=== PATIENT | female | born 1995 | race Caucasian/White ===

== ENCOUNTER 2017-09-01 20:17 | Emergency (ER) | payer SELFPAY ==
[~2017-09-01] VITALS: Ht 167.6 cm; Wt 60.1 kg
[2017-09-01 20:22] VITALS: Ht 167.6 cm; Wt 60.1 kg
[2017-09-01] MEDS ORDERED: IRON1CAP2 PO (20:33)
[2017-09-01] MEDS ORDERED: KETOROLAC TROMETHAMINE 30 MG/ML VIAL IV STA (20:38)
[2017-09-01] MEDS ORDERED: SODIUM CHLORIDE 0.9% 1000ML 1,000 ML IV STA (20:38)
[2017-09-01 21:02] LABS: BASO % 0.2 %; BASO ABS # 0.02 K/uL (0-0.2); EOS % 0.2 %; EOS ABS # 0.03 K/uL (0-0.5); HEMATOCRIT 39.3 % (37-47); HEMOGLOBIN 13.7 g/dL (12.0-16.0); IG# 0.03 K/uL (0.00-0.02); LYMPH % 12.8 %; LYMPH ABS # 1.65 K/uL (1.2-3.4); MEAN CELL VOLUME 89.9 fL (80-100); MEAN CORPUSCULAR HEMOGLOBIN 31.4 pg (25-34); MEAN CORPUSCULAR HGB CONC 34.9 g/dl (32-36); MEAN PLATELET VOLUME 10.2 fL (7.4-10.4); MONO % 6.2 %; NEUT % 80.4 %; NEUT ABS # 10.35 K/uL (1.4-6.5); PLATELET COUNT 238 K/uL (130-400); RED CELL DISTRIBUTION WIDTH CV 13.4 % (11.5-14.5); RED CELL DISTRIBUTION WIDTH SD 44.2 fL (36.4-46.3); WHITE BLOOD COUNT 12.88 K/uL (4.8-10.8)
[2017-09-01 21:21] LABS: ALBUMIN 4.1 gm/dl (3.4-5.0); CREATININE 0.89 mg/dl (0.60-1.20); POTASSIUM 3.5 mmol/L (3.5-5.1)
[2017-09-01 21:23] LABS: TOTAL PROTEIN 7.6 gm/dl (6.4-8.2)
[2017-09-01] MEDS ORDERED: OPTIRAY 320 IV PRN (21:45)
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
--- NOTE | 2017-09-01 21:57 | DIAGNOSTIC IMAGING REPORT ---
CT OF THE ABDOMEN AND PELVIS WITH CONTRAST CLINICAL HISTORY: Lower abdominal pain. COMPARISON STUDY: CT of the abdomen and pelvis September 22, 2015 and pelvic ultrasound April 14, 2016. TECHNIQUE: Following IV administration of 116 mL of Optiray-320, axial images of the abdomen and pelvis were obtained from the lung bases to the proximal femurs. Images were reviewed in the axial, sagittal, and coronal planes. IV contrast was administered without complication. A dose lowering technique was utilized adhering to the principles of ALARA. CT DOSE: 282.64 mGy.cm FINDINGS: Lung bases are clear. The liver, spleen, adrenal glands and pancreas are normal. There is no biliary or pancreatic ductal dilatation. There is no peripancreatic or pericholecystic infiltration. There is mild multifocal scarring of the right kidney. There is no hydronephrosis or hydroureter. There is urothelial thickening of both ureters and the bilateral collecting systems. No ureteral calculi are identified. The caliber and wall thickness of small and large bowel are normal. Visualized portions of the appendix are normal. A small amount of low-attenuation free fluid within the pelvis is noted. Note is made of a 1.9 cm hypodense right ovarian lesion which suggests a dominant follicle. IMPRESSION: 1. Mild urothelial thickening involving the bilateral ureters and collecting systems. This may reflect pyelitis and could be correlated with urinalysis. 2. Mild multifocal scarring of the right kidney. No CT evidence for acute pyelonephritis. 3. Normal appendix. 4. Small amount of low-attenuation free fluid within the pelvis. Dominant follicle within the right ovary. Electronically signed by: Krystian Paige M.D. 09/01/2017 9:56 PM Dictated Date/Time: 09/01/2017 9:46 PM
[2017-09-01] MEDS ORDERED: MoRPHine SULFATE 4 MG/ML 1 ML CARP\\VIAL IV STA (22:56)
[2017-09-02] MEDS ORDERED: ONDANSETRON INJ 2 MG/ML 2 ML VIAL ONE (00:07)
[2017-09-02 00:13] VITALS: BP 113/62; PULSE 58; O2SAT 99
[2017-09-02] MEDS ORDERED: CIPROFLOXACIN 500 MG TAB PO STA (00:14)
[2017-09-02 00:17] VITALS: TEMP 36.7
[2017-09-02] MEDS ORDERED: CIPR-255 PO (00:23)
--- NOTE | 2017-09-02 06:54 | DIAGNOSTIC IMAGING REPORT ---
PELVIC COMPLETE NON OB CLINICAL HISTORY: 22 years-old Female presenting with r/o cyst vs torsion, generalized pelvic and lower back pain, last menstrual period 07/22/2017, history of tubal ligation. TECHNIQUE: Real-time grayscale and color and spectral Doppler ultrasound imaging of the pelvis was performed using a transabdominal probe. COMPARISON: Ultrasound from 04/14/[address] from 09/01/2017. FINDINGS: Uterus: Normal. Anteverted. The uterus measures 7.8 x 3.0 x 5.1 cm. Endometrial stripe measures 11 mm in thickness. Endometrium normal-appearing. Cervix grossly normal allowing for transabdominal interrogation. Right adnexa: Right ovary contains a dominant follicle. Right ovary measures 3.1 x 1.9 x 2.0 cm. Normal color Doppler flow and arterial and venous waveforms within the ovarian parenchyma. Left adnexa: Left ovary normal. Left ovary measures 2.8 x 1.7 x 3.2 cm. Normal color Doppler flow and arterial and venous waveforms within the ovarian parenchyma. Other: Moderate amount of mobile debris noted in the bladder lumen. The bladder is circumferentially thick-walled. Trace free fluid in the pelvis possibly physiologic. IMPRESSION: 1. No evidence of ovarian torsion. 2. Bladder wall thickening and bladder lumen old debris could suggest cystitis. Correlate with urinalysis. Electronically signed by: Rony Benites M.D. 09/02/2017 6:52 AM Dictated Date/Time: 09/02/2017 6:48 AM
--- NOTE | 2017-09-03 12:11 | Pharmacy Progress Note ---
ED Pharmacist Culture FollowUp Date of Service: Sep 03, 2017. Patient was sent home with a prescription for Ciprofloxacin 500mg PO BID x 7 days, which should cover the e coli growing from the patient's URINE culture.
== END 2017-09-02 00:29 | disposition home or self-care (01) ==
LOC: C.EDB 20:20 → C.EDC 09-02 00:29
DX: N39.0 Urinary tract infection, site not specified (principal); N83.201 Unspecified ovarian cyst, right side; F90.9 Attention-deficit hyperactivity disorder, unspecified type; F31.9 Bipolar disorder, unspecified; J45.909 Unspecified asthma, uncomplicated; Z84.1 Family history of disorders of kidney and ureter; F17.210 Nicotine dependence, cigarettes, uncomplicated; Z88.0 Allergy status to penicillin; Z88.2 Allergy status to sulfonamides; Z88.5 Allergy status to narcotic agent; Z88.8 Allergy status to other drugs, medicaments and biological substances; Z88.1 Allergy status to other antibiotic agents

== ENCOUNTER 2017-10-01 04:13 | Emergency (ER) | payer SELFPAY ==
[~2017-10-01] VITALS: Ht 167.6 cm; Wt 57.3 kg
[~2017-10-01 04:13] MED LIST: CIPR-255 PO; IRON1CAP2 PO
[2017-10-01 04:16] VITALS: Ht 167.6 cm; Wt 57.3 kg
[2017-10-01] MEDS ORDERED: SODIUM CHLORIDE 0.9% 1000ML 1,000 ML IV STA (04:28)
[2017-10-01] MEDS ORDERED: DiphenhydrAMINE HCL 50 MG/ML VIAL IV STA (04:28)
[2017-10-01] MEDS ORDERED: KETOROLAC TROMETHAMINE 30 MG/ML VIAL IV STA (04:28)
[2017-10-01] MEDS ORDERED: METOCLOPRAMIDE HCL INJ 5 MG/ML 2 ML VIAL IV STA (04:28)
[2017-10-01 04:43] LABS: BASO % 0.4 %; BASO ABS # 0.03 K/uL (0-0.2); EOS % 1.9 %; EOS ABS # 0.15 K/uL (0-0.5); HEMATOCRIT 41.7 % (37-47); HEMOGLOBIN 14.9 g/dL (12.0-16.0); IG# 0.02 K/uL (0.00-0.02); LYMPH % 31.7 %; LYMPH ABS # 2.56 K/uL (1.2-3.4); MEAN CELL VOLUME 89.5 fL (80-100); MEAN CORPUSCULAR HGB CONC 35.7 g/dl (32-36); MONO % 7.9 %; MONO ABS # 0.64 K/uL (0.11-0.59); NEUT % 57.9 %; NEUT ABS # 4.67 K/uL (1.4-6.5); PLATELET COUNT 292 K/uL (130-400); RED CELL DISTRIBUTION WIDTH SD 42.6 fL (36.4-46.3); WHITE BLOOD COUNT 8.07 K/uL (4.8-10.8)
[2017-10-01 04:44] VITALS: O2SAT 100
[2017-10-01 05:05] LABS: ALBUMIN 4.3 gm/dl (3.4-5.0); CREATININE 0.95 mg/dl (0.60-1.20); POTASSIUM 3.4 mmol/L (3.5-5.1)
[2017-10-01 05:07] LABS: TOTAL PROTEIN 8.2 gm/dl (6.4-8.2)
[2017-10-01] MEDS ORDERED: POTASSIUM CHLORIDE 10 MEQ TABCR PO STA (05:21)
[2017-10-01 06:10] VITALS: BP 112/62; PULSE 59; O2SAT 100
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
[2017-10-01] MEDS ORDERED: ONDANSETRON HOME PACK 4MG OD TAB PO ONE (06:30)
--- NOTE | 2017-10-01 06:58 | DIAGNOSTIC IMAGING REPORT ---
ULTRASOUND OF THE PELVIS CLINICAL HISTORY: Pelvic pain. COMPARISON STUDY: Pelvic ultrasound dated 09/01/2017. TECHNIQUE: Real-time, grayscale, and color flow sonography of the pelvis is performed transabdominally. Images are reviewed in the transverse and longitudinal planes. The patient declined the endovaginal examination. FINDINGS: Uterus: The uterus is normal in size and echotexture, measuring 7.2 x 4.6 x 6.0 cm. Endometrium: The endometrium is normal in appearance, and the endometrial stripe is normal in thickness measuring up to 1.0 cm. Ovaries: The ovaries are normal in size and morphology. The right ovary measures 3.0 x 2.6 x 2.9 cm and the left ovary measures 2.2 x 1.9 x 2.3 cm. There are small bilateral ovarian follicles. Normal Doppler waveforms are shown within both ovaries. Pelvis: There is a small volume of free fluid in the cul-de-sac. No concerning adnexal lesion is seen. IMPRESSION: 1. No acute sonographic abnormality is identified in the pelvis. 2. A small volume of free fluid in the cul-de-sac is likely within physiologic limits. Electronically signed by: Noe Sosa M.D. 10/01/2017 6:57 AM Dictated Date/Time: 10/01/2017 6:55 AM
== END 2017-10-01 06:28 | disposition home or self-care (01) ==
LOC: C.EDB 04:14 → C.EDA 06:28
DX: N83.201 Unspecified ovarian cyst, right side (principal); J45.909 Unspecified asthma, uncomplicated; F17.200 Nicotine dependence, unspecified, uncomplicated; Z84.1 Family history of disorders of kidney and ureter

== ENCOUNTER 2017-11-12 20:43 | Emergency (ER) | payer OTHER ==
[~2017-11-12] VITALS: Ht 167.6 cm; Wt 45.5 kg
[~2017-11-12 20:43] MED LIST changes: -CIPR-255 PO
[2017-11-12 20:52] VITALS: TEMP 36.7; Ht 167.6 cm; Wt 45.5 kg
[2017-11-12] MEDS ORDERED: IBUPROFEN 600 MG TAB PO STA (21:27)
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
--- NOTE | 2017-11-12 22:27 | DIAGNOSTIC IMAGING REPORT ---
R KNEE 3 VIEWS CLINICAL HISTORY: Right knee pain. Inability to walk. COMPARISON: None. DISCUSSION: No fractures or dislocations are visualized. IMPRESSION: No fractures or dislocations identified. Electronically signed by: Shahzad Chan M.D. 11/12/2017 10:26 PM Dictated Date/Time: 11/12/2017 10:25 PM
[2017-11-12 22:50] VITALS: BP 116/71; PULSE 71; O2SAT 100
== END 2017-11-12 22:51 | disposition home or self-care (01) ==
LOC: C.EDB 20:46 → C.EDD 22:51
DX: S83.91XA Sprain of unspecified site of right knee, initial encounter (principal); X58.XXXA Exposure to other specified factors, initial encounter; F17.210 Nicotine dependence, cigarettes, uncomplicated; J45.909 Unspecified asthma, uncomplicated; F31.9 Bipolar disorder, unspecified; Z88.1 Allergy status to other antibiotic agents; Z88.0 Allergy status to penicillin; Z88.5 Allergy status to narcotic agent

== ENCOUNTER 2020-09-30 13:34 | Observation (INO) ==
[2020-09-30 15:55] LABS: POC Urine Bilirubin Negative (Negative); POC Urine Blood 50 (Negative); POC Urine Glucose Normal (Normal); POC Urine Leukocytes Negative (Negative); POC Urine Nitrite Negative (Negative); POC Urine Protein Negative (Negative); POC Urine Urobilinogen Normal (Normal); POC Urine pH 5 (4.5-7.5)
[2020-09-30 16:02] LABS: Basophils # (auto) 0.04 K/uL (0-0.2); Basophils % (auto) 0.5 %; Eosinophils # (auto) 0.12 K/uL (0-0.5); Eosinophils % (auto) 1.5 %; Hematocrit (blood only) 41.3 % (37-47); Hemoglobin 14.6 g/dL (12.0-16.0); Immature Granulocytes # (auto) 0.01 K/uL (0.00-0.02); Immature Granulocytes % (auto) 0.1 %; Lymphocytes # (auto) 1.65 K/uL (1.2-3.4); Lymphocytes % (auto) 20.4 %; Mean Corpuscular Hemoglobin 32.4 pg (25-34); Mean Corpuscular Hgb Conc 35.4 g/dL (32-36); Mean Corpuscular Volume 91.8 fL (80-100); Mean Platelet Volume 10.4 fL (7.4-10.4); Monocytes # (auto) 0.68 K/uL (0.11-0.59); Monocytes % (auto) 8.4 %; Neutrophils # (auto) 5.59 K/uL (1.4-6.5); Neutrophils % (auto) 69.1 %; Platelet Count 228 K/uL (130-400); RDW Coefficient of Variation 12.9 % (11.5-14.5); RDW Standard Deviation 43.3 fL (36.4-46.3); White Blood Count 8.09 K/uL (4.8-10.8)
[2020-09-30 16:09] LABS: Appearance Urine Clear (Clear); Bacteria Urine Automated Negative (Negative); Bilirubin Urine Negative (Negative); Blood Urine 1+ (Negative); Color Urine Yellow; Epithelial Cell Urine Auto >30 /lpf (0-5); Glucose Urine UA Negative (Negative); Ketones Urine 3+ (Negative); Leukocyte Esterase Urine Trace (Negative); Nitrite Urine Negative (Negative); Protein Urine Negative (Negative); Specific Gravity Urine 1.021 (1.000-1.030); Urobilinogen Urine Negative (Negative)
[2020-09-30] MEDS ORDERED: MoRPHine SULFATE 4 MG/ML 1 ML CARP\\VIAL IV STA (16:10)
[2020-09-30] MEDS ORDERED: SODIUM CHLORIDE 0.9% 1000ML 2,000 ML IV ONE (16:10)
[2020-09-30] MEDS ORDERED: ONDANSETRON INJ 2 MG/ML 2 ML VIAL IV STA (16:10)
[2020-09-30] MEDS ORDERED: cefTRIAXone SODIUM 2,000 MG/70 ML BAG IV STA (16:10)
--- NOTE | 2020-09-30 16:16 | Emergency Department Note ---
History of Present Illness General Chief complaint: Back Injury/Pain Stated complaint: KIDNEY INFECTION, BACK PAIN Time Seen by Provider: 09/30/20 15:59 Source: patient and family (Efe who is at the bedside ) Mode of arrival: ambulatory Limitations: no limitations History of Present Illness Maximum Pain Intensity: 8 This patient comes in with continuing symptoms of pyelonephritis. She was seen here on Saturday had extensive work-up and was started on cefdinir. She has been having right flank pain. She did have a CT at the time which showed hydronephrosis without any obstructive uropathy. She does get kidney infections frequently and tells me she has been treated for this 5 times this year and just never fully clears up. She had follow-up with her doctor today who referred her to the ER for likely admission. She is a temperature of up to 103 this morning at 5:00 denies . Denies dysuria or hematuria. she has had nausea and decreased p.o. intake. No diarrhea. No cough or shortness of breath. Reviewing her records her urine culture came back for pansensitive E. coli. She does have a history of asthma and bipolar which she says are stable. She has been taking her medications and denies that she has had any thoughts of hurting herself Home Medications Medication Instructions Recorded Confirmed Type albuterol sulfate 2 puff INHALATION DIRECTED PRN 05/20/19 09/30/20 History sumatriptan succinate 100 mg tablet 100 mg PO Q2H PRN tab 09/15/19 09/30/20 History cefdinir 300 mg PO Q12H 10 Days #20 cap 09/27/20 09/30/20 Rx ondansetron 4 mg PO Q8H PRN #10 tab 09/27/20 09/30/20 Rx Allergies Allergy/AdvReac Type Severity Reaction Status Date / Time Bactrim Allergy Unknown HIVES Verified 10/01/17 05:18 erythromycin base Allergy Unknown Hyperactive Verified 09/27/20 15:48 Penicillins Allergy Unknown Rash Verified 09/27/20 15:48 sulfamethoxazole Allergy Unknown Hives Verified 09/27/20 15:48 trimethoprim Allergy Unknown Hives Verified 09/27/20 15:48 codeine AdvReac Mild Hyperactive Verified 09/27/20 15:48 sertraline AdvReac Mild Hyperactive Verified 09/27/20 15:48 red dye AdvReac Unknown Hyperactive Verified 09/27/20 15:48 Past Med/Surg History Medical History ADHD Anxiety Asthma Bipolar disorder Depression Headache Left ovarian cyst Surgical History History of surgery on arm History of tubal ligation Family History Family/Other Anxiety Depression Grandmother (Maternal) Diabetes Murmur Osteoporosis Grandfather (Maternal) Hypertension Nephrolithiasis Mother Nephrolithiasis Cyst of ovary Von Willebrand disease Social History Smoking Status: Current every day smoker Tobacco Type: Cigarettes Cigarettes Per Day: varies less than 1 pack a day; Hx Alcohol Use: Yes Alcohol type: beer, wine and hard liquor Hx Substance Use: No Preferred Language: Austrian Communication Ability: Effective Call Center Dispatcher Required: No Beliefs That Will Affect Care: None marital status: Current Living Situation: Spouse current occupational status: unemployed Other Information That Helps Us Care for You: No Feels Safe at Home: Yes Safety Concerns: Feels Safe At This Time Review of Systems A total of 10 systems reviewed and were otherwise negative Physical Exam Vital Signs Vital Signs - 24 hr 09/30/20 13:42 09/30/20 15:50 Temperature 36.1 C L Temperature Source Skin Pulse Rate 98 H Pulse Rate [Apical] 88 Respiratory Rate 18 18 Respiratory Effort / Characteristics Non-Labored Spontaneous Respiratory Depth Normal Respiratory Pattern Regular Blood Pressure 120/88 Blood Pressure [Left Arm] 142/93 H Blood Pressure Mean 98 Blood Pressure Mean [Left Arm] 109 Blood Pressure Position Sitting Pulse Oximetry 100 99 Oxygen Delivery Method Room Air Room Air Sepsis Recent Fever Within 48 Hours No Sepsis New/Unexplained Change in Mental Status N/A Sepsis Action Taken by Nursing No Action Required General: Well developed well nourished nontoxic not ill-appearing young female who appears in no acute distress, breathing comfortably on room air. Normal speech HEENT: Normal cephalic atraumatic. Pupils are equal round and reactive to light. Extraocular movements are intact. Oropharynx is pink with moist mucous membranes. No swelling of the mouth lips or tongue. Neck: Supple with a midline trachea. No meningeal signs or stiffness, no JVD or bruits. No Stridor. Chest: Clear to auscultation bilaterally. No wheezes or rhonchi. No increased work of breathing. Heart: Regular rate and rhythm without murmurs or gallops. Abdomen: Soft nontender, nondistended without rebound guarding or rigidity. Extremities: No cyanosis clubbing or edema. No calf tenderness or assymetry Spine/Back. Non tender to palpation. She has tenderness to percussion on the right flank Skin: Good turgor without rashes. Neurologic exam: Cranial nerves two through 12 are intact. Motor and sensation are intact and symmetrical throughout. Course Administered Medications Cefdinir (Cefdinir 300 Mg Cap) 300 mg PO BID STEVAN; Protocol Stop: 10/10/20 20:59 Last Admin: 09/30/20 21:01 Dose: 300 mg Documented by: [id number] Morphine Sulfate (Morphine Sulfate 2 Mg/Ml Carp) 2 mg IV Q3H PRN PRN Reason: pain Stop: 10/14/20 19:45 Last Admin: 09/30/20 20:13 Dose: 2 mg Documented by: [id number] Ondansetron HCl (Ondansetron 4 Mg Od Tab) 4 mg PO Q8H PRN PRN Reason: nausea and vomiting Stop: 10/30/20 19:48 Last Admin: 09/30/20 21:01 Dose: 4 mg Documented by: [id number] Sumatriptan Succinate (Sumatriptan Succinate 100 Mg Tab) 100 mg PO Q2H PRN PRN Reason: Migraine Headache Stop: 10/30/20 19:45 Last Admin: 09/30/20 21:01 Dose: 100 mg Documented by: [id number] Discontinued Medications Ceftriaxone Sodium (Rocephin) 2,000 mg in 70 mls @ 140 mls/hr IV NOW STA Stop: 09/30/20 16:39 Last Infusion: 09/30/20 17:45 Dose: 0 mls/hr Documented by: [id number] Admin: 09/30/20 16:44 Dose: 140 mls/hr Documented by: [id number] Sodium Chloride (Nss 1000ml) 2,000 mls @ 999 mls/hr IV .Q2H1M ONE Stop: 09/30/20 18:10 Last Infusion: 09/30/20 20:22 Dose: 0 mls/hr Documented by: [id number] Admin: 09/30/20 16:44 Dose: 999 mls/hr Documented by: [id number] Morphine Sulfate (Morphine Sulfate 4 Mg/Ml 1 Ml Carp\Vial) 4 mg IV NOW STA Stop: 09/30/20 16:11 Last Admin: 09/30/20 16:45 Dose: 4 mg Documented by: [id number] Ondansetron HCl (Ondansetron Inj 2 Mg/Ml 2 Ml Vial) 4 mg IV NOW STA Stop: 09/30/20 16:11 Last Admin: 09/30/20 16:45 Dose: 4 mg Documented by: [id number] Medical Decision Making Differential Diagnosis Kidney infection, Covid, dehydration, electrolyte or metabolic abnormality, sepsis, kidney stone Medical Records Attestation: I reviewed the patient's medical records. Home Medications Current Medication List: was personally reviewed by me Laboratory Data Attestation: I reviewed the patient's lab results. Result diagrams: 09/30/20 15:44 09/30/20 17:02 Lab Results 09/30/20 09/30/20 09/30/20 Range/Units 15:44 15:44 15:44 WBC 8.09 (4.8-10.8) K/uL RBC 4.50 (4.2-5.4) M/uL Hgb 14.6 (12.0-16.0) g/dL Hct 41.3 (37-47) % MCV 91.8 (80-100) fL MCH 32.4 (25-34) pg MCHC 35.4 (32-36) g/dL RDW Std Deviation 43.3 (36.4-46.3) fL RDW Coeff of Tommie 12.9 (11.5-14.5) % Plt Count 228 (130-400) K/uL MPV 10.4 (7.4-10.4) fL Immature Gran % (Auto) 0.1 % Neut % (Auto) 69.1 % Lymph % (Auto) 20.4 % Prairie % (Auto) 8.4 % Eos % (Auto) 1.5 % Baso % (Auto) 0.5 % Neut # (Auto) 5.59 (1.4-6.5) K/uL Lymph # (Auto) 1.65 (1.2-3.4) K/uL [place] # (Auto) 0.68 H (0.11-0.59) K/uL Eos # (Auto) 0.12 (0-0.5) K/uL Baso # (Auto) 0.04 (0-0.2) K/uL Immature Gran # (Auto) 0.01 (0.00-0.02) K/uL Sodium 137 (136-145) mmol/L Potassium (3.5-5.1) mmol/L Chloride 108 H (98-107) mmol/L Carbon Dioxide 24 (21-32) mmol/L Anion Gap 5.0 (3-11) BUN 12 (7-18) mg/dl Creatinine 0.85 (0.6-1.2) mg/dl Est Cr Clr Drug Dosing 94.7 ml/min Est GFR ( Amer) 110.4 Est GFR (Non-Af Amer) 95.2 BUN/Creatinine Ratio 13.9 (10-20) Glucose 79 (70-99) mg/dl Calcium 9.3 (8.5-10.1) mg/dl Urine Color Yellow Urine Appearance Clear (Clear) Urine pH 6.0 (4.5-7.5) POC Urine pH (4.5-7.5) Ur Specific Economy 1.021 (1.000-1.030) Urine Protein Negative (Negative) POC Urine Protein (Negative) Urine Glucose (UA) Negative (Negative) POC Ur Glucose (UA) (Normal) Urine Ketones 3+ H (Negative) POC Urine Ketones (Negative) Urine Blood 1+ H (Negative) POC Urine Blood (Negative) Urine Nitrite Negative (Negative) POC Urine Nitrite (Negative) Urine Bilirubin Negative (Negative) POC Urine Bilirubin (Negative) Urine Urobilinogen Negative (Negative) POC Urine Urobilinogen (Normal) Ur Leukocyte Esterase Trace H (Negative) POC U Leukocyte Esteras (Negative) Urine WBC (Auto) 5-10 H (0-5) /hpf Urine RBC (Auto) 10-30 H (0-4) /hpf U Hyaline Cast (Auto) 5-10 H (0-5) /lpf U Epithel Cells (Auto) >30 H (0-5) /lpf Urine Bacteria (Auto) Negative (Negative) POC Ur Test (NEG) 09/30/20 Range/Units 15:44 WBC (4.8-10.8) K/uL RBC (4.2-5.4) M/uL Hgb (12.0-16.0) g/dL Hct (37-47) % MCV (80-100) fL MCH (25-34) pg MCHC (32-36) g/dL RDW Std Deviation (36.4-46.3) fL RDW Coeff of Tommie (11.5-14.5) % Plt Count (130-400) K/uL MPV (7.4-10.4) fL Immature Gran % (Auto) % Neut % (Auto) % Lymph % (Auto) % [place] % (Auto) % Eos % (Auto) % Baso % (Auto) % Neut # (Auto) (1.4-6.5) K/uL Lymph # (Auto) (1.2-3.4) K/uL [place] # (Auto) (0.11-0.59) K/uL Eos # (Auto) (0-0.5) K/uL Baso # (Auto) (0-0.2) K/uL Immature Gran # (Auto) (0.00-0.02) K/uL Sodium (136-145) mmol/L Potassium (3.5-5.1) mmol/L Chloride (98-107) mmol/L Carbon Dioxide (21-32) mmol/L Anion Gap (3-11) BUN (7-18) mg/dl Creatinine (0.6-1.2) mg/dl Est Cr Clr Drug Dosing ml/min Est GFR ( Amer) Est GFR (Non-Af Amer) BUN/Creatinine Ratio (10-20) Glucose (70-99) mg/dl Calcium (8.5-10.1) mg/dl Urine Color Urine Appearance (Clear) Urine pH (4.5-7.5) POC Urine pH 5 (4.5-7.5) Ur Specific Economy (1.000-1.030) Urine Protein (Negative) POC Urine Protein Negative (Negative) Urine Glucose (UA) (Negative) POC Ur Glucose (UA) Normal (Normal) Urine Ketones (Negative) POC Urine Ketones 2+ (Moderate) H (Negative) Urine Blood (Negative) POC Urine Blood 50 H (Negative) Urine Nitrite (Negative) POC Urine Nitrite Negative (Negative) Urine Bilirubin (Negative) POC Urine Bilirubin Negative (Negative) Urine Urobilinogen (Negative) POC Urine Urobilinogen Normal (Normal) Ur Leukocyte Esterase (Negative) POC U Leukocyte Esteras Negative (Negative) Urine WBC (Auto) (0-5) /hpf Urine RBC (Auto) (0-4) /hpf U Hyaline Cast (Auto) (0-5) /lpf U Epithel Cells (Auto) (0-5) /lpf Urine Bacteria (Auto) (Negative) POC Ur Test NEG (NEG) Imaging Data Radiologist's Impression: US renal/blad retro comp HISTORY: 25 years-old Female pyleonephritis, assess for hydro or abscess acute bilateral flank pain COMPARISON: CT abdomen and pelvis 09/27/2020 TECHNIQUE: Multiple real-time sonographic images of the kidneys and urinary bladder were obtained assessing grayscale appearance and color flow FINDINGS: The right kidney measures 10.8 x 4.1 x 4.4 cm demonstrates mild pelvocaliectasis. No right-sided renal calculi or liza hydronephrosis. No perirenal fluid collections. Left kidney measures 9.4 x 5.8 x 5.5 cm and is unremarkable without renal calculi, or hydronephrosis. Possible cyst of the superior pole left kidney, 7 mm. Moderate bladder wall thickening with partial distention. Bilateral ureteral jets are present. IMPRESSION: 1. Mild right-sided pelvocaliectasis without renal calculi or liza hydronephrosis. 2. No perirenal fluid collections. 3. Mild urinary bladder wall thickening. Correlate with urinalysis. MDM Narrative This patient comes in as described above. She has ongoing symptoms of a kidney infection. She is afebrile here but had a temperature of 103 at home she has flank tenderness. Reviewing her culture, she is reece sensitive E. coli. She was given Rocephin 2 g IV which she has had before. She was given 2 L IV fluid. She was given morphine 4 mg IV and Zofran 4 mg IV both of which she tells me she has had before without problems. Her white count is trending downward. I do think she does need to be admitted as a failed outpatient therapy. She has normal renal function. The admitting team did order ultrasound which showed no obstructive uropathy. test is negative. She was admitted for pain management, IV antibiotics IV fluids and further treatment and evaluation of consulted Dr. Perez for the [facility] team to see her in the emergency department. She was Covid tested given the fact that she is going to be admitted and it was negative. Impression & Plan Pyelonephritis, Not currently , Acute right flank pain, COVID-19 ruled out by laboratory testing Discharge Plan Visit Data Chief Complaint: Back Injury/Pain Stated Complaint: KIDNEY INFECTION, BACK PAIN ED Provider: Eligio Balderas Discharge Problem: Pyelonephritis, Not currently , Acute right flank pain, COVID-19 ruled out by laboratory testing Patient Disposition: Admitted As Inpatient Discharge Instructions Interventions: ED Discharge Assessment Last Done: 09/30/20 19:24
[2020-09-30 16:28] LABS: BUN Creatinine Ratio 13.9 (10-20); Calcium 9.3 mg/dl (8.5-10.1); Creatinine Clr Calc Pharmacy 94.7 ml/min; Est GFR (African American) 110.4; Est GFR (Non-African American) 95.2
--- NOTE | 2020-09-30 17:23 | History & Physical Report ---
Date of Service September 30, 2020 Assessment & Plan (1) Pyelonephritis of right kidney: Patient returns with pain and fevers, subjective report of 100.3 at home 36 degrees - Patient remains hemodynamically stable and not toxic appearing - Qsofa- 0, SIRS- 0 - Renal indices normal - CRP 8.18 trend biomarker of next 24-48 hours - Lactate 1.0 with no evidence of hypoperfusion - Ultrasound to assess for change in hydronephrosis, abscess formation or infarct - Will continue with cefdinir 300 mg PO BID unless ultrasound shows worsening or abscess formation. Patient may benefit from urology consult as outpatient to evaluate frequent UTI and/or frequent pyelonephritis. (2) Migraine headache: Patient on triptan as outpatient no acute needs continue - was on Topamax previously (3) Bipolar disorder: Patient was previously on Buspirinone in 2018 with well controlled symptoms, which she stopped when she quit working in 2019 - has not had any breaks, anxiety/panic attacks - on no therapy (4) Anxiety: As above (5) Asthma: No acute needs, mild with good control - Albuterol PRN - No night time awakenings to use inhaler - Uses inhaler ~once every 3 month History of Present Illness Chief Complaint: pain and fevers Primary Care Provider: ARIELA Estrada 25 YOF with past medical history for migraines, bipolar, anxiety, asthma, pyelonephritis, frequent UTI's and left kidney cyst. Patient was recently seen on for complaints of right flank pain and discomfort with urination. She had a Urine culture that was done that is pansensitive E.col and a CT scan of her abdomen and pelvis that suggested pyelonephritis and hydroureteronephrosis. She was placed on Cefdinir 300mg BID and discharged from ER. She returns today for complaints of still having right flank pain and fevers. The patient is currently hemodynamically stable and normal WBC count of 8.0, renal indices are also normal, urine with trace LE, negative Nitr, WBC 5- 10, RBC 10-30, and hyaline casts 5-10. She has received IV morphine and pain is improved as well as Zofran and 2 Liters of NS, and IV antibiotics of Rocephin initiated by the EMD. Hospitalist service was asked to observe the patient for pain control and monitor clinical trend with infective markers. Patient does endorse previous eppisode in 2016 requiring hosptialization and on and off from [id number], she endorses as well frequent UTIs Allergies Allergy/AdvReac Type Severity Reaction Status Date / Time Bactrim Allergy Unknown HIVES Verified 10/01/17 05:18 erythromycin base Allergy Unknown Hyperactive Verified 09/27/20 15:48 Penicillins Allergy Unknown Rash Verified 09/27/20 15:48 sulfamethoxazole Allergy Unknown Hives Verified 09/27/20 15:48 trimethoprim Allergy Unknown Hives Verified 09/27/20 15:48 codeine AdvReac Mild Hyperactive Verified 09/27/20 15:48 sertraline AdvReac Mild Hyperactive Verified 09/27/20 15:48 red dye AdvReac Unknown Hyperactive Verified 09/27/20 15:48 Home Medications Medication Instructions Recorded Confirmed Type albuterol sulfate 2 puff INHALATION DIRECTED PRN 05/20/19 09/30/20 History sumatriptan succinate 100 mg tablet 100 mg PO Q2H PRN tab 09/15/19 09/30/20 History cefdinir 300 mg PO Q12H 10 Days #20 cap 09/27/20 09/30/20 Rx ondansetron 4 mg PO Q8H PRN #10 tab 09/27/20 09/30/20 Rx Past Med/Surg History Medical History ADHD Anxiety Asthma Bipolar disorder Depression Headache Left ovarian cyst Surgical History History of surgery on arm History of tubal ligation Family History Family/Other Anxiety Depression Grandmother (Maternal) Diabetes Murmur Osteoporosis Grandfather (Maternal) Hypertension Nephrolithiasis Mother Nephrolithiasis Cyst of ovary Von Willebrand disease Social History Smoking Status: Current every day smoker Tobacco Type: Cigarettes Cigarettes Per Day: varies less than 1 pack a day; Hx Alcohol Use: Yes Alcohol type: beer, wine and hard liquor Hx Substance Use: No Preferred Language: Yi Communication Ability: Effective [employer]coal [employer] Required: No Beliefs That Will Affect Care: None marital status: Current Living Situation: Spouse current occupational status: unemployed Other Information That Helps Us Care for You: No Feels Safe at Home: Yes Safety Concerns: Feels Safe At This Time Review of Systems Review of Systems: REVIEW OF SYSTEMS: Constitutional: (+) fever, sweats or chills Eyes: No diplopia, no worsening or blurred vision ENT: normal hearing, no trouble swallowing Respiratory: No cough, sputum, dyspnea at rest or on exertion Cardiovascular: No chest pain, tightness or palpitations Abdomen: (+) right flank pain, nausea, (-) vomiting, diarrhea or constipation Musculoskeletal: No joint pain, calf pain, swelling Neurologic: No weakness, numbness/tingling, or balance problems Psychiatric: No anxiety or depression Skin: No rash or itch Physical Exam Physical Exam: PHYSICAL EXAM: General: awake, alert, no apparent distress Head: Normocephalic, atraumatic ENT: PERRL, EOMI, no pharyngeal exudate, mucous membranes moist Neuro: AAO x 3, speech clear and appropriate, strength intact bilaterally 5/5, sensation intact and equal all extremities and dermatomes, no pronator drift Chest: equal rise and fall of the chest, no accessory muscle use, no heaves or thrills, Clear to auscultation, on room air, Cardiac: Regular rate and rhythm, telemetry reviewed, skin warm dry, cap refill <3 seconds, peripheral pules +2 no JVD, no murmur, no edema GI: NABS x 4 quadrants, soft, nontender to palpation, no rebound, guarding or tenderness, spleen or liver not enlarged : Spontaneously voiding, no pain with urination now, but continued right flank CVA tenderness, no bruising, Extremities: Normal inspection, no peripheral edema or erythema, calfs nontender to palpation Psych: Normal mood and affect Skin/MSK: no rash or erythema, no back spasm Results & Data Results & Data ([facility]) Vital Signs (Past 12 Hours) Vital Signs Temp Pulse Pulse Resp BP BP Pulse Ox 09/30/20 15:50 88 18 142/93 H 99 09/30/20 13:42 36.1 C L 98 H 18 120/88 100 Laboratory Results Abnormal lab results 09/30/20 09/30/20 09/30/20 Range/Units 15:44 15:44 15:44 Catron # (Auto) 0.68 H (0.11-0.59) K/uL Chloride 108 H (98-107) mmol/L Urine Ketones 3+ H (Negative) POC Urine Ketones (Negative) Urine Blood 1+ H (Negative) POC Urine Blood (Negative) Ur Leukocyte Esterase Trace H (Negative) Urine WBC (Auto) 5-10 H (0-5) /hpf Urine RBC (Auto) 10-30 H (0-4) /hpf U Hyaline Cast (Auto) 5-10 H (0-5) /lpf U Epithel Cells (Auto) >30 H (0-5) /lpf 09/30/20 Range/Units 15:44 Catron # (Auto) (0.11-0.59) K/uL Chloride (98-107) mmol/L Urine Ketones (Negative) POC Urine Ketones 2+ (Moderate) H (Negative) Urine Blood (Negative) POC Urine Blood 50 H (Negative) Ur Leukocyte Esterase (Negative) Urine WBC (Auto) (0-5) /hpf Urine RBC (Auto) (0-4) /hpf U Hyaline Cast (Auto) (0-5) /lpf U Epithel Cells (Auto) (0-5) /lpf Urine Culture Final 09/29/20-1013 Organism 1 Escherichia coli [place] Count >100,000 CFU/ml Sens Sensitivities to Follow +Mix Urine Plus Low Counts of Other Mixed Jazmyn E coli RX M.I.C. --- --------- Amox/Clav S <=8/4 Ampicillin S <=8 Amp/Sul S <=8/4 Cefazolin S <=2 Cefepime S <=2 Ceftriaxone S <=1 Ciprofloxacin S <=0.25 Ertapenem S <=0.5 Gentamicin S <=4 Levofloxacin S <=0.5 Meropenem S <=1 Nitrofurantoin S <=32 Tobramycin S <=4 Trimeth/Sulfa S <=2/38 Pip/Tazo S <=16 Diagnostic Findings Renal ultrasound pending Medications Administered Sodium Chloride (Nss 1000ml) 2,000 mls @ 999 mls/hr IV .Q2H1M ONE Stop: 09/30/20 18:10 Last Admin: 09/30/20 16:44 Dose: 999 mls/hr Documented by: [id number] Discontinued Medications Ceftriaxone Sodium (Rocephin) 2,000 mg in 70 mls @ 140 mls/hr IV NOW STA Stop: 09/30/20 16:39 Last Admin: 09/30/20 16:44 Dose: 140 mls/hr Documented by: [id number] Morphine Sulfate (Morphine Sulfate 4 Mg/Ml 1 Ml Carp\\Vial) 4 mg IV NOW STA Stop: 09/30/20 16:11 Last Admin: 09/30/20 16:45 Dose: 4 mg Documented by: [id number] Ondansetron HCl (Ondansetron Inj 2 Mg/Ml 2 Ml Vial) 4 mg IV NOW STA Stop: 09/30/20 16:11 Last Admin: 09/30/20 16:45 Dose: 4 mg Documented by: [id number] Home Medications albuterol sulfate 2 puff INHALATION DIRECTED PRN 05/20/19 [History Confirmed 09/30/20] sumatriptan succinate 100 mg tablet 100 mg PO Q2H PRN tab 09/15/19 [History Confirmed 09/30/20] cefdinir 300 mg PO Q12H 10 Days #20 cap 09/27/20 [Rx Confirmed 09/30/20] ondansetron 4 mg PO Q8H PRN #10 tab 09/27/20 [Rx Confirmed 09/30/20] Active Medications Sodium Chloride (Nss 1000ml) 2,000 mls @ 999 mls/hr IV .Q2H1M ONE Stop: 09/30/20 18:10 Last Admin: 09/30/20 16:44 Dose: 999 mls/hr Documented by: Code Status & VTE Plan Code Status CODE: FULL VTE: SCD's and ambulation VTE Prophylaxis Plan VTE Prophylaxis will be ordered: Yes Supervising Physician Co-Signing Physician Notes Patient was seen and examined independently I discussed the case with Jono TITUS I reviewed pertinent past medical social family history and also the plan of care and agree with the plan of care. Patient with pansensitive E. coli UTI treated with cefdinir returns with intractable flank pain. Patient has persistent recurrent urinary tract infections. Patient recalls seeing a urologist when she was in her four 5-year-old range cannot recall why she is not received any urological follow-up but has not seen any recently. Patient has no anterior abdominal pain does have persistent right flank pain on examination Continue treatment for her UTI which is reece "sensitive E. coli with further imaging of her renal system to look for abnormalities that may prevent her from clearing her pyelonephritis with strong recommendation for outpatient urological follow-up. Pain control will be also undertaken Any exceptions will be noted below PG Care Time/CCT Total # of Minutes Spent Total Time Spent with Patient: Total time spent is greater than 50% in coordination of care (as documented) at patient's floor/unit and/or counseling patient: Coding Level of Care Code 68563 Initial Inpt Care Lvl 2 Diagnoses Pyelonephritis of right kidney N12 Migraine headache G43.909 Intractability: not intractable Migraine type: unspecified Status migrainosus presence: without status migrainosus Bipolar disorder F31.9 Active/Remission status: remission status unspecified Anxiety F41.9 Asthma J45.909 Asthma complication type: uncomplicated Asthma persistence: unspecified Asthma severity: mild (1) Bipolar disorder Active/Remission status: remission status unspecified Qualified Code(s): F31.9 - Bipolar disorder, unspecified (2) Migraine headache Intractability: not intractable Migraine type: unspecified Status migrainosus presence: without status migrainosus Qualified Code(s): G43.909 - Migraine, unspecified, not intractable, without status migrainosus (3) Asthma Asthma complication type: uncomplicated Asthma persistence: unspecified Asthma severity: mild Qualified Code(s): J45.909 - Unspecified asthma, uncomplicated
[2020-09-30 17:30] LABS: C Reactive Protein 8.18 mg/dl (0-0.29)
[2020-09-30 18:08] LABS: Influenza A virus by PCR Negative (Neg); Influenza B virus by PCR Negative (Neg); RSV by PCR Negative (Neg); SARS CoV2 RNA(COVID-19) InHosp NEGATIVE (Negative)
--- NOTE | 2020-09-30 18:10 | Ultrasound Report ---
US renal/blad retro comp HISTORY: 25 years-old Female pyleonephritis, assess for hydro or abscess acute bilateral flank pain COMPARISON: CT abdomen and pelvis 09/27/2020 TECHNIQUE: Multiple real-time sonographic images of the kidneys and urinary bladder were obtained ass essing grayscale appearance and color flow FINDINGS: The right kidney measures 10.8 x 4.1 x 4.4 cm demonstrates mild pelvocaliectasis. No right-sided lore l calculi or liza hydronephrosis. No perirenal fluid collections. Left kidney measures 9.4 x 5.8 x 5.5 cm and is unremarkable without renal calculi, or hydronephrosis. Possible cyst of the superior pole left kidney, 7 mm. Moderate bladder wall thickening with partial distention. Bilateral ureteral jets are present. IMPRESSION: 1. Mild right-sided pelvocaliectasis without renal calculi or liza hydronephrosis. 2. No perirenal fluid collections. 3. Mild urinary bladder wall thickening. Correlate with urinalysis. ACT 112: Negative or not required by law. The above report was generated using voice recognition software. It may contain grammatical, syntax o r spelling errors. Electronically signed by: Jose Abernathy M.D. 09/30/2020 6:08 PM
[2020-09-30] MEDS ORDERED: SUMAtriptan succinate 100 MG TAB PO PRN (19:46)
[2020-09-30] MEDS ORDERED: ALBUTEROL HFA 8 GM INHALER INH PRN (19:46)
[2020-09-30] MEDS ORDERED: ACETAMINOPHEN 325 MG TAB PO PRN (19:46)
[2020-09-30] MEDS ORDERED: ONDANSETRON 4 MG OD TAB PO PRN (19:49)
[2020-09-30] MEDS: MoRPHine SULFATE 2 MG/ML CARP IV PRN (20:13)
[2020-09-30] MEDS: CEFDINIR 300 MG CAP PO SCH (21:01)
[2020-10-01] MEDS: MoRPHine SULFATE 2 MG/ML CARP IV PRN (02:40)
[2020-10-01] MEDS ORDERED: HYDROcodone/ACETAMINOPHEN 10/325 TAB PO PRN (07:49)
[2020-10-01] MEDS ORDERED: HYDROCODONE/ACETAMOPHEN 5/325MG TAB PO PRN (08:46)
[2020-10-01] MEDS: CEFDINIR 300 MG CAP PO SCH (09:13)
--- NOTE | 2020-10-01 19:21 | Discharge Summary ---
Date of Service October 01, 2020 Admission HPI Per Admitting Provider 25 YOF with past medical history for migraines, bipolar, anxiety, asthma, pyelonephritis, frequent UTI's and left kidney cyst. Patient was recently seen on for complaints of right flank pain and discomfort with urination. She had a Urine culture that was done that is pansensitive E.col and a CT scan of her abdomen and pelvis that suggested pyelonephritis and hydroureteronephrosis. She was placed on Cefdinir 300mg BID and discharged from ER. She returns today for complaints of still having right flank pain and fevers. The patient is currently hemodynamically stable and normal WBC count of 8.0, renal indices are also normal, urine with trace LE, negative Nitr, WBC 5- 10, RBC 10-30, and hyaline casts 5-10. She has received IV morphine and pain is improved as well as Zofran and 2 Liters of NS, and IV antibiotics of Rocephin initiated by the EMD. Hospitalist service was asked to observe the patient for pain control and monitor clinical trend with infective markers. Patient does endorse previous eppisode in 2016 requiring hosptialization and on and off from [id number], she endorses as well frequent UTIs Principal Diagnosis Pyelonephritis with acute on chronic back pain Discharge Exam Constitutional: WD/WN, vitals as above Respiratory: Effort normal, CTA B/L CV: RRR, no murmur, no edema Abdomen: normal bowel sounds, soft, nontender, no hepatosplenomegaly, no CVA tenderness Skin no rash Discharge Data Allergies Allergy/AdvReac Type Severity Reaction Status Date / Time Bactrim Allergy Unknown HIVES Verified 10/01/17 05:18 erythromycin base Allergy Unknown Hyperactive Verified 09/27/20 15:48 Penicillins Allergy Unknown Rash Verified 09/27/20 15:48 sulfamethoxazole Allergy Unknown Hives Verified 09/27/20 15:48 trimethoprim Allergy Unknown Hives Verified 09/27/20 15:48 codeine AdvReac Mild Hyperactive Verified 09/27/20 15:48 sertraline AdvReac Mild Hyperactive Verified 09/27/20 15:48 red dye AdvReac Unknown Hyperactive Verified 09/27/20 15:48 Consultations 09/30/20 18:06 ED Decision to Admit Stat 10/01/20 12:08 Consult Urology Routine Ordered Studies 09/30/20 16:36 US renal/blad retro comp Urgent Hospital Course (1) Pyelonephritis of right kidney: (2) Acute right flank pain: Pt was admitted for observation. during her stay she was treated with her oral Cefdinir and her symptoms improved. Her flank pain resolved with pain control and rehydration. She received IV pain medications and was transitioned to oral medications. When evaluated her symptoms were mostly resolved and the acute pain was stable. The patient was able to be discharged home with re commendations to complete her po Cefdinir. Rx provided for pain medications and anti-emetic for as needed use.All questions answered. recommend the patient should follow up with her PCP in the next week. Total Time Total Time Spent Total Time Spent (In Minutes): 35 Total Time Includes: Examination of the Patient, Discharge Planning and Medication Reconciliation Discharge Plan Discharge Items Patient Disposition: Home - Self-Care Reason For Visit: PYELO WITH BACK PAIN Discharge Diagnosis: Pyelonephritis Condition on Discharge: Good Activity: Resume your previous activity Lifting: Gradually increase as tolerated Bathing: No limitations Sexual Activity: When tolerated Exercise/Sports: Gradually increase as tolerated Driving/Machine Use: No limitations Non-emergency contact: Primary Care Provider Call non-emergency contact if: you have any medication questions, your symptoms worsen, your pain is not controlled and your temperature is above 101 Follow-up/Referrals: Dede Saldivar CRNP [Primary Care Provider] - Diet: Regular Addtl Attending Provider Instructions: You were admitted for acute onset of Pyelonephritis which is a kidney infection. Continue your antibiotics until complete. Mild pain can be treated with tylenol Moderate pain can be treated with Hydrocodone/Tylenol as prescribed. This is an opioid medication and may cause drowsiness. Do not operate machinery, drive, or perform work while taking this medication. Ondanestron can be taken for nausea as needed. 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 Provider Instructions: Return to work in 72 hrs, 10/05/2020 Pending Studies at Discharge: No Stand-Alone Forms: [employer], Opioid Pain Management, Work/School Release (Inpt), Smoking Cessation Medications and DC Order Prescriptions: New hydrocodone-acetaminophen 5-300 mg tablet 1 tab PO BID PRN (Reason: pain) Qty: 5 RF: 0 Continued albuterol sulfate 90 mcg/actuation HFA aerosol inhaler 2 puff INHALATION DIRECTED PRN (Reason: Shortness Of Breath) RF: 0 ondansetron 4 mg tablet,disintegrating 4 mg PO Q8H PRN (Reason: nausea and vomiting) Qty: 10 RF: 0 cefdinir 300 mg capsule 300 mg PO Q12H 10 Days Qty: 20 RF: 0 Discontinued sumatriptan succinate 100 mg tablet 100 mg PO Q2H PRN (Reason: Migraine Headache) RF: 0 Discharge Orders: Discharge Order (Routine); Ordered 10/01/20 Ordered By: Eligio Jacob Admission Data Admit Date/Time: 09/30/20 16:47 Attending Provider: Eligio Jacob Admit Provider: Walker Perez Primary Care Provider: Dede Saldivar Other Providers: Walker Perez ; Ashish Albert Other Interventions: Discharge Summary Assessment (RN) Last Done: 10/01/20 14:47 Coding Level of Care Code D/C Day Management >30 mins Diagnoses Pyelonephritis of right kidney N12 Acute right flank pain R10.9
== END 2020-10-01 15:43 | disposition home or self-care (01) ==
LOC: 3N 13:34 → ED 13:34 → SUATTDRO 16:47 → 3N 19:24